=== PATIENT | male | born 1965 | race American Indian/Alaskan Native ===

== ENCOUNTER 2020-03-16 06:57 | Day surgery (SDC) | payer MEDICARE, OTHER ==
[2020-03-16] MEDS ORDERED: SODIUM CHLORIDE 0.9% 1000 ML 1,000 ML IV SCH (07:00)
--- NOTE | 2020-03-16 08:01 | Anesthesia Day of Surgery ---
Anesthesia Day of Surgery - Day of Surgery Patient Examined: Yes Patient H&P Reviewed: Yes Patient is NPO: Yes
--- NOTE | 2020-03-16 08:02 | Anesthesia Consultation ---
Anesthesia Consult and Med Hx Date of service: 03/16/20 - Airway Anesthetic Teeth Evaluation: Good ROM Head & Neck: Adequate Mental/Hyoid Distance: Adequate Mallampati Class: Class III Intubation Access Assessment: Probably Good - Pre-Operative Health Status ASA Pre-Surgery Classification: ASA3 Proposed Anesthetic Plan: MAC - Pulmonary Hx Smoking: Yes Hx Respiratory Symptoms: No (+2FS. Active) - Cardiovascular System Hx Hypertension: Yes Hx Heart Attack/AMI: Yes Hx Internal Defibrillator: Yes (Has CHF in the past) - Gastrointestinal Hx Gastroesophageal Reflux Disease: No - Endocrine Hx Renal Disease: No - Hematic Hx Sickle Cell Disease: No - Other Systems Hx Obesity: No
[2020-03-16] MEDS ORDERED: LIDOCAINE MPF (2%) 20 MG/1 ML VIAL 5 ML ONE (08:52)
[2020-03-16] MEDS ORDERED: propofoL 200 MG/20 ML VIAL IV ONE ×2 (08:52→08:59)
--- NOTE | 2020-03-16 09:18 | Short Stay Summary ---
Short Stay Documentation Date of service: 03/16/20 Narrative H&P: The patient presents for scheduled surveillance colonoscopy for a history of polyps. Last study 5 years ago. - History Past Medical History: heart failure, hypertension, other (defibrillator placement) Past Surgical History: Other (Defibrillator) - Allergies and Medications Current Medications: Allergies No Known Allergies Allergy (Unverified 03/12/20 08:19) Home Medications Medication Instructions Recorded Confirmed Last Taken Type Amiodarone [Cordarone 200 MG TAB] 200 mg PO DAILY 03/16/20 03/16/20 03/15/20 11:00 History Aspirin EC [Halfprin EC] 81 mg PO QDAY 03/16/20 03/16/20 03/09/20 11:00 History AtorvaSTATin [Lipitor] 20 mg PO QHS 03/16/20 03/16/20 03/14/20 17:00 History Furosemide [Lasix] 20 mg PO QDAY 03/16/20 03/16/20 03/14/20 17:00 History Sacubitril/Valsartan [Entresto 1 tab PO BID 03/16/20 03/16/20 03/16/20 05:45 History 49-51 mg] Spironolactone [Aldactone] 25 mg PO QDAY 03/16/20 03/16/20 03/14/20 10:00 History carvediloL [Coreg] 1 tab PO BID 03/16/20 03/16/20 03/16/20 05:45 History Active Medications Sodium Chloride (Nacl 0.9% 1000 Ml) 1,000 mls @ 50 mls/hr IV DIRECT CHAMP - Physical exam General appearance: no acute distress, well-nourished Integumentary: no rash, no growths, no abnormal pigmentation HEENT: Atraumatic, PERRLA, EOMI, Mucous membr. moist/pink Lungs: Clear to auscultation Breasts: deferred Heart: Regular rate, Normal S1, Normal S2, No murmurs Gastrointestinal: normoactive bowel sounds, no tenderness, no distended, no masses, no guarding, no organomegaly, no obese Male Genitourinary: deferred Rectal Exam: normal exam-external/orifice, normal rectal tone, no mass Extremities: no ischemia, pulses intact, pulses symmetrical, No edema, normal temperature, normal color, Full ROM Neurological: Normal gait, Normal speech, Strength at 5/5 X4 ext, Normal tone, Sensation intact, Cranial nerves 3-12 NL - Brief post op/procedure progress note Date of procedure: 03/16/20 Findings: see dictation Estimated blood loss: none Pathology: list (rectal polyp) Specimen disposition: to lab Condition: stable - Disposition Condition at discharge: Good Disposition: DC-01 TO HOME OR SELFCARE - Discharge Diagnoses (1) History of colon polyps Status: Acute Short Stay Discharge Plan Activity: other (no driving for 24 hours.) Weight Bearing Status: Full Weight Bearing Diet: regular Follow up with: PRIMARY CAREMD [Primary Care Provider] - 7 Days
--- NOTE | 2020-03-16 09:21 | Operative Report ---
Operative Report Operative Report: Date of procedure: 03/16/2020 Preprocedure diagnosis: History of colon polyps. Last study 5 years ago. Post procedure diagnosis: Small rectal polyp, otherwise normal Procedure: Colonoscopy to the cecum with cold snare polypectomy. Endoscopist: Dr. Garcia Anesthesia: Monitored anesthesia care per anesthesia department Estimated blood loss: 0 Medications: Monitored anesthesia care. See separate report by anesthesia for details. After careful discussion of the nature and purpose of the procedure as well as details of the technique risks benefits and alternatives the patient gave consent. Please see recent history and physical from the office. The patient was placed in the left lateral decubitus position and medicated per anesthesia. A rectal exam was performed sphincter tone was normal there were no masses palpable. The Eucalyptus Systemsn 570 scope was passed transanally and advanced under continuous direct vision without difficulty to the cecum. The colon was well prepared. The cecum was normal. The ascending colon was normal and on forward and retroflexed views. The transverse colon, descending colon, and sigmoid colon were normal. The rectum revealed a 5 mm semipedunculated polyp. The polyp was removed with cold snare resection and retrieved by suction. The rectum was othe rwise normal on forward and retroflexed views. The procedure was well-tolerated overall and the patient was observed in recovery. Conclusions: Small rectal polyp. Otherwise normal study. Plan: Repeat colonoscopy in 5 years in light of history of polyps. Signed electronically: Fernando Garcia M.D.
--- NOTE | 2020-03-16 09:58 | Post Anesthesia Evaluation ---
- Post Anesthesia Evaluation Patient Participated: Yes Airway Patent: Yes Stable Respiratory Function: Yes Nausea/Vomiting: No Temp > 96.8F: Yes Pain Manageable: Yes Adequeate Hydration: Yes Anesthesia Complications: No Block Receding Appropriately: Not Applicable Patient on Ventilator: No
[2020-03-16 10:01] VITALS: BP 119/82
== END 2020-03-16 06:58 | disposition home or self-care (01) ==
LOC: GIO 06:57
PROVIDERS: ATTEND Internal Medicine Gastroenterology
DX: Z12.11 Encounter for screening for malignant neoplasm of colon (principal); K62.1 Rectal polyp; I11.0 Hypertensive heart disease with heart failure; I50.9 Heart failure, unspecified; E78.00 Pure hypercholesterolemia, unspecified; Z98.890 Other specified postprocedural states; Z86.010 Personal history of colon polyps; Z79.899 Other long term (current) drug therapy; Z87.891 Personal history of nicotine dependence
CPT/HCPCS: 45385; 88305; J2704; J7030